=== PATIENT | female | born 1960 | race Caucasian/White ===

== ENCOUNTER 2016-02-23 15:22 | Outpatient (CLI) | payer OTHER ==
[~2016-02-23 15:22] MED LIST: BROVANA15 MCG IN; BUSPIRONE HCL10 MG PO; COMBIVIR1 TAB PO; EFFEXOR25 MG PO; ENBREL50 MG/ML; FERROUS SULFAT324 M1 PO; FLONASE AL50 MCG/ACT; FLOVENT HFA44 MCG IN; FOLIC ACID1 MG PO; HYDROXYCHLOROQ200 MG PO; IPRATROPIUM BROMIDE/ IN; IRON325 MG PO; LYRICA100 MG PO; METHOCARBAMOL500 MG PO; METHOTREXATE2.5 MG PO; OMEPRAZOLE40 MG; ONDANSETRON ODT4 MG PO; OXYCODONE HCL5 MG PO; PHENTERMINE H37.5 MG PO; PROAIR HFA IN; RANITIDINE HCL150 MG PO; SERTRALINE HCL100 MG PO; SUMATRIPTAN SUC50 MG PO; TOPAMAX25 MG PO; TRAZODONE HCL50 MG PO; TRIAMCINOLONE A0.13 TOP; VITAMIN D-31000 UNIT PO
--- NOTE | 2016-02-23 16:32 | DIAGNOSTIC IMAGING REPORT ---
PROCEDURE: XR CHEST 2 VIEW INDICATION: COPD TECHNIQUE: PA and lateral views. COMPARISON: Chests 05/30/2015 FINDINGS: Lungs are clear. Heart and mediastinum are normal. Thorax is normal. IMPRESSION: 1. Negative chest.
== END 2016-02-23 23:00 ==
LOC: XR SRH 15:22
DX: J44.9 Chronic obstructive pulmonary disease, unspecified (principal)

== ENCOUNTER 2016-05-29 13:10 | Outpatient (CLI) | payer OTHER ==
--- NOTE | 2016-05-29 14:06 | DIAGNOSTIC IMAGING REPORT ---
PROCEDURE: MG BILATERAL SCREENING W/CAD INDICATION: Screening. Family history breast carcinoma (grandmother). TECHNIQUE: Bilateral CC and MLO digital views. COMPARISON: Compared to 01/14/2015, 09/15/2013, and 09/23/2013. Comparison is also made to left breast ultrasound (09/25/2013). FINDINGS: Computer-aided detection applied. Moderately dense and mildly nodular with a few dystrophic calcifications. There is a stable 1.7 cm ovoid nodule or cyst in the upper outer right breast (previously documented). No change. IMPRESSION: 1. Negative mammogram with stable 1.7 cm benign nodule in the upper outer left breast RESULT CODE: 2- Benign finding(s). A. A negative report should not delay biopsy if a dominant or clinically suspicious mass is present. 10-15% of cancers are not identified by x-ray. B. A negative report may reinforce clinical impression. C. Adenosis and dense breasts may obscure an underlying neoplasm. D. False positive reports average 6-10%. E.. A yearly screening mammogram is recommended. A reminder letter will be scheduled.
== END 2016-05-29 23:00 ==
LOC: MAM SRH 13:10
DX: Z12.31 Encounter for screening mammogram for malignant neoplasm of breast (principal)

== ENCOUNTER 2016-06-22 13:00 | Outpatient (CLI) | payer OTHER | END 2016-06-22 23:00 | LOC: LAB SRH 13:00 | DX: Z79.899 Other long term (current) drug therapy (principal) | CPT/HCPCS: 90074; 90100; 91585; 95059; 95150 ==